=== PATIENT | male | born 1980 | race Caucasian/White ===

== ENCOUNTER 2021-03-23 10:25 | Inpatient (IN) | payer OTHER, SELFPAY ==
[2021-03-23] VITALS (60 sets, daily range): BP systolic 119–159; BP diastolic 83–96; PULSE 92–115; RESP 16–42; TEMP 35.7–36.6; O2SAT 79–96; BMI 31.1
--- NOTE | ~2021-03-23 | XR_ITS ---
EXAMINATION: XR chest 1V portable DATE: 03/23/2021 11:07 INDICATION: COVID positive. Shortness of breath. TECHNIQUE: frontal view of the chest was obtained. COMPARISON: None FINDINGS: Patchy airspace opacities throughout the bilateral mid and lower lung zones. The cardiomediastinal si lhouette is within normal limits for AP technique. Minimal S-shaped curvature of the thoracic spine. IMPRESSION: 1. Patchy opacities in the bilateral mid and lower lung zones with appearance consistent with COVID p neumonia. Reviewed, dictated and finalized at location A. K PREPARER IMPRESSION: 1. Patchy opacities in the bilateral mid and lower lung zones with appearance c onsistent with COVID pneumonia.
--- NOTE | ~2021-03-23 | CT_ITS ---
EXAMINATION: CTA chest PE protocol EXAM DATE: 03/24/2021 00:11 INDICATION: hypoxia, COVID, elevated d dimer. TECHNIQUE: Spiral CTA of the chest (pulmonary arteries) was performed with 100 cc Omnipaque 350 intr avenous contrast injection. Images were acquired during the pulmonary arterial phase. Coronal maxi mum intensity projection 3D-reconstructions were created by the technologist on dedicated workstation . Axial, coronal and sagittal reformatted images were reviewed. The dose-length product (DLP) for t his examination was 585.42 mGy-cm. The exposure was tailored according to patient size (auto mA exp osure control), and iterative reconstruction (ASIR) was used as additional dose reduction technique. There is no prior study for comparison. FINDINGS: There are no pulmonary emboli in the 1st through 3rd order (central and interlobar) pulmon julee arteries. Some loss of attenuation in the basilar segmental pulmonary from respiratory motion, t hese regions not confidently evaluated. No Intraluminal filling defects identified. Azygos fissure. No thoracic aortic dissection. There is moderate amount of bilateral airspace disease, regions of linear atelectasis and surrounding groundglass opacity, appearance is consistent with subacute stage COVID pneumonia. There are no pleu ral or pericardial effusions. Tracheobronchial tree is patent. There is no mediastinal, hilar or axillary lymphadenopathy. There is no pneumothorax. Mild cardiomegaly. No evidence of coronary a rterial calcification. There is hepatic steatosis. There is small sliding gastroesophageal hiatal he rnia. There is thoracic spondylosis without osteoblastic or osteolytic lesions identified. IMPRESSION: 1. No central pulmonary emboli. Basilar segmental pulmonary arteries not confidently evaluated. 2. Moderate amount of airspace disease consistent with subacute stage COVID pneumonia. 3. Mild cardiomegaly. Reviewed, dictated and finalized at location A. MOBILE LIGHTS ASSEMBLER IMPRESSION: 1. No central pulmonary emboli. Basilar segmental pulmonary arteries not confi dently evaluated. 2. Moderate amount of airspace disease consistent with subacute stage COVID pn eumonia. 3. Mild cardiomegaly.
--- NOTE | 2021-03-23 10:51 | ECG_ITS ---
Measurements Intervals [place] Rate: 99 P: 29 IN: 132 QRS: -24 QRSD: 102 T: 12 QT: 348 QTc: 448 Interpretive Statements SINUS RHYTHM CONSIDER INFERIOR INFARCT, AGE INDETERMINATE BASELINE ARTIFACT- I, II, III, AVR, AVL, AVF, V2-V6 ABNORMAL ECG Electronically Signed On 03-23-2021 11:03:53 ADJUNCT PROFESSOR OF LAW by Roger Jones D.O.
[2021-03-23 11:07] LABS: Basophils Percent Auto 0.2 % (0.2-1.2); Hematocrit 41.9 % (42.0-52.0); Hemoglobin 14.5 g/dL (14.0-18.0); Immature Granulocyte Absolute 0.03 K/mm3 (0.00-0.031); Immature Granulocyte Percent A 0.5 % (0-0.5); Lymphocytes Absolute Auto 1.03 K/mm3 (0.9-3.2); Lymphocytes Percent Auto 17.3 % (18.3-44.2); Mean Corpuscular HGB Conc 34.6 g/dl (32-36); Mean Corpuscular Hemoglobin 29.3 pg (26-34); Mean Corpuscular Volume 84.6 fl (80-100); Monocytes Absolute Auto 0.3 K/mm3 (0.1-0.6); Monocytes Percent Auto 5.7 % (2.6-8.5); Neutrophils Absolute Auto 4.6 K/mm3 (1.3-6.7); Neutrophils Percent Auto 76.3 % (45.5-73.1); Platelet Count Result 223 k/mm3 (150-375); Red Blood Count 4.95 M/mm3 (4.6-6.20); Red Cell Distribution Width 12.9 % (11.5-14.5)
[2021-03-23 11:21] LABS: Alanine Aminotransferase 70 U/L (4-50); Albumin Level 4.3 g/dL (3.5-5.1); Alkaline Phosphatase 57 U/L (38-126); Anion Gap 14 mmol/L (8-16); Aspartate Amino Transferase 57 U/L (17-59); Bilirubin,Total 0.7 mg/dL (0.2-1.3); Blood Urea Nitrogen 18 mg/dL (9-20); Calcium 8.8 mg/dL (8.4-10.2); Carbon Dioxide 25 mmol/L (22-30); Chloride 97 mmol/L (98-107); Estimated CRCL calculation 95 ml/min; Estimated Glomerular Filt Rate > 60; Glucose 129 mg/dL (65-110); Potassium 3.6 mmol/L (3.4-5.0); Sodium 136 mmol/L (137-145)
--- NOTE | 2021-03-23 12:53 | PC.NURSE ---
pt o2 sat dropped to 86% on ra while ambulating, placed on 2l oxygen NC per vorb from dr arenas
--- NOTE | 2021-03-23 13:38 | ED.GENADULT ---
HPI - General Adult General Chief complaint: Upper Respiratory Infection Stated complaint: Covid + sob Time Seen by Provider: 03/23/21 11:18 Source: patient Mode of arrival: ambulatory Limitations: no limitations History of Present Illness HPI narrative: 40-year-old with no major medical problems here with complaints of shortness of breath and occasional cough and low-grade fever for past few days. He states he was diagnosed with Covid approximately 3 to 4 days ago. He denies any chest pain. No history of nausea or vomiting or abdominal pain. Patient is not vaccinated against Covid Onset (ago): day(s) (3) Associated symptoms: malaise and shortness of breath Related Data Home Medications Medication Instructions Recorded Confirmed No Home Medications 03/23/21 03/23/21 Allergies Allergy/AdvReac Type Severity Reaction Status Date / Time No Known Allergies Allergy Verified 03/23/21 11:00 Review of Systems Review of Systems: All systems reviewed & are unremarkable except as noted in HPI and below Constitutional: Constitutional: Reports no additional constitutional complaints Eyes: Eyes: Reports no additional eye complaints ENT: Reports system reviewed and no additional complaints, except as documented Cardiovascular: Cardiovascular: Reports no additional cardiovascular complaints Respiratory: Respiratory: Reports as per HPI Gastrointestinal: Gastrointestinal: Reports no additional gastrointestinal complaints Musculoskeletal: Musculoskeletal: Reports no additional musculoskeletal complaints Integumentary/Breasts: Skin/Breast: Reports system reviewed and no additional complaints, except as docu Neurologic: Reports system reviewed and no additional complaints, except as documented PMFSH Social History Social History (Updated 03/23/21 @ 14:53 by Analy Plasencia PA-C) Social History: The patient lives in [place]. He designates his Tete Wolfe as his surrogate decision maker. Code status: Full code. Exam Narrative: GENERAL: Well-appearing, well-nourished, and in no acute distress. HEAD: Normocephalic, atraumatic. EYES: PERRLA and EOMI. NECK: Supple. CHEST: Clear to auscultation. No respiratory distress. HEART: Regular rate and rhythm. No murmur heard. Normal peripheral pulses. ABDOMEN: Soft, nontender, nondistended, normal active bowel sounds. EXTREMITIES: Normal range of motion. No edema. SKIN: Warm, dry, no rash. NEURO: No focal deficits. Alert and oriented x3. PSYCH: Normal mood and affect. Course Course Emergency Course: Patient resting SPO2 is anywhere between 90 - 92% on room air. When I made him ambulate for a very short distance his SPO2 dropped down to 80 and his heart rate went up to 212. Once he is resting with 2 L oxygen saturations came up to 94%. Informed him about his lab work, chest x-ray findings. Discussed with hospitalist agreed to admit the patient. Vital Signs Vital signs: Vital Signs Temperature 35.7 C L 03/23/21 10:28 Pulse Rate 107 H 03/23/21 10:28 Respiratory Rate 24 H 03/23/21 10:28 Blood Pressure 137/84 03/23/21 10:28 Pulse Oximetry 92 03/23/21 10:28 Temperature 35.7 C L 03/23/21 10:28 Pulse Rate 104 H 03/23/21 14:01 Respiratory Rate 32 H 03/23/21 14:01 Blood Pressure 135/87 03/23/21 14:01 Pulse Oximetry 94 03/23/21 14:01 Medical Decision Making Vital Signs Vital Signs: Vital Signs Temperature 35.7 C L 03/23/21 10:28 Pulse Rate 107 H 03/23/21 10:28 Respiratory Rate 24 H 03/23/21 10:28 Blood Pressure 137/84 03/23/21 10:28 Pulse Oximetry 92 03/23/21 10:28 Temperature 35.7 C L 03/23/21 10:28 Pulse Rate 104 H 03/23/21 14:01 Respiratory Rate 32 H 03/23/21 14:01 Blood Pressure 135/87 03/23/21 14:01 Pulse Oximetry 94 03/23/21 14:01 Lab Data Result diagrams: 03/23/21 10:59 03/23/21 10:59 Labs: Lab Results 03/23/21 03/23/21 03/23/21 Range/Units
[2021-03-23 14:09] LABS: EDCOVIDSCREEN Positive (Negative)
[2021-03-23 15:29] LABS: Prothrombin Time 13.1 Seconds (11.1-14.7)
[2021-03-23 15:31] LABS: D Dimer 0.54 ug/mL (<0.48)
[2021-03-23 15:33] LABS: CRP 6.2 mg/dL (<1.0); Lactate Dehydrogenase 899 U/L (313-618); Magnesium 2.6 mg/dL (1.6-2.3)
[2021-03-23] MEDS: REMDESIVIR 200 MG/NS 250 ML 200 MG/250 ML BAG 250 MG IVPB (16:03)
[2021-03-23 16:36] LABS: Thyroid Stimulating Hormone Reflex 0.834 uIU/mL (0.465-4.68)
--- NOTE | 2021-03-23 17:30 | PM.IMHP ---
H&P: HPI History of Present Illness Date/Time: 03/23/21 17:30 Chief Complaint: Shortness of breath. Narrative: This is a 40-year-old male with no significant medical history who presented to the emergency department earlier today from home for evaluation of shortness of breath. He has not been feeling well for about 1 week with symptoms to include generalized malaise, low-grade fever, cough, sinus congestion, decreased appetite, and decreased smell and taste. Over the last day or so he is gotten progressively more weak and short of breath and thus he came in today for evaluation. He was afebrile on arrival to the emergency department with an SpO2 of 92% on room air though since that time he has been started on 2 L nasal cannula as his SpO2 dropped to 79% when ambulating. Chest x-ray shows patchy opacities in the bilateral mid and lower lung zones with an appearance consistent with COVID pneumonia and he is being admitted in this setting. The patient reportedly tested positive for COVID 19 on a home kit on 03/20/2021 and he was also positive on a rapid screening test today in the ER. He has not vaccinated against COVID. Review of Systems Review of Systems: Twelve systems were reviewed and are negative except for as per HPI. [facility] Past Medical History Medical History (Updated 03/23/21 @ 23:32 by Analy Plasencia PA-C) No significant past medical history Surgical History Surgical History (Updated 03/23/21 @ 23:32 by Analy Plasencia PA-C) No history of previous surgery Family History Family History (Updated 03/23/21 @ 23:32 by Analy Plasencia PA-C) Other No pertinent family history Social History Social History (Updated 03/23/21 @ 23:33 by Analy Plasencia PA-C) Social History: The patient lives with his and children in [place]. Lifelong nonsmoker. No alcohol or illicit substance abuse. He designates his Tete Wolfe as his surrogate decision maker. Code status: Full code. Meds Home Medications and Allergies Home Medications Medication Instructions Recorded Confirmed Type No Home Medications 03/23/21 03/23/21 History Allergies Allergy/AdvReac Type Severity Reaction Status Date / Time No Known Allergies Allergy Verified 03/23/21 11:00 Vital Signs Vital Signs - 24 hr 03/23/21 10:28 03/23/21 10:51 03/23/21 10:52 Temperature 96.2 F L Pulse Rate 107 H 99 103 H Respiratory Rate 24 H 36 H 25 H Blood Pressure 137/84 132/88 Pulse Oximetry 92 91 92 03/23/21 11:00 03/23/21 11:02 03/23/21 11:03 Temperature Pulse Rate 99 107 H 100 Respiratory Rate 33 H 42 H 25 H Blood Pressure 132/88 137/86 Pulse Oximetry 92 93 91 03/23/21 11:19 03/23/21 11:49 03/23/21 12:00 Temperature Pulse Rate 100 94 93 Respiratory Rate 28 H 29 H 32 H Blood Pressure Pulse Oximetry 92 92 91 03/23/21 12:01 03/23/21 12:02 03/23/21 12:15 Temperature Pulse Rate 92 93 99 Respiratory Rate 31 H 31 H 34 H Blood Pressure 119/88 Pulse Oximetry 92 91 91 03/23/21 12:16 03/23/21 12:30 03/23/21 12:31 Temperature Pulse Rate 102 H 97 103 H Respiratory Rate 28 H 33 H 24 H Blood Pressure 128/83 126/92 H Pulse Oximetry 91 86 L 90 03/23/21 12:45 03/23/21 12:49 03/23/21 12:50 Temperature Pulse Rate 104 H 115 H 106 H Respiratory Rate 26 H 38 H 31 H Blood Pressure 159/96 H Pulse Oximetry 79 L 86 L 03/23/21 13:00 03/23/21 13:01 03/23/21 13:04 Temperature Pulse Rate 101 H 102 H Respiratory Rate 29 H 35 H Blood Pressure 127/88 Pulse Oximetry 93 93 93 03/23/21 13:15 03/23/21 13:31 03/23/21 13:32 Temperature Pulse Rate 104 H 103 H 101 H Respiratory Rate 33 H 33 H 34 H Blood Pressure 134/90 Pulse Oximetry 93 95 94 03/23/21 13:48 03/23/21 14:01 Temperature Pulse Rate 106 H 104 H Respiratory Rate 38 H 32 H Blood Pressure 135/87 Pulse Oximetry 96 94 Exam Narrative: General: Mildly ill-appearing male sitting up in bed. [place]
--- NOTE | 2021-03-23 21:24 | PC.NURSE ---
This patient, Kaleb Wolfe, was admitted to [facility] Surg Room 321-01. Patient/family oriented to hospital policies and general routines including ID bracelet, bed and alarms, visiting hours, pain management, procedures, bathroom and other care routines, personal items, smoking policy, room service/diet, and visiting hours. Information on how to activate the Rapid Response Team has been discussed. Patient/Family are encouraged to report perceived risks to care and to ask questions if they do not understand what they are told or what they should do.
[2021-03-24] VITALS (13 sets, daily range): BP systolic 125–167; BP diastolic 75–84; PULSE 91–110; RESP 12–24; TEMP 36.5–36.7; O2SAT 88–96
[2021-03-24 08:03] LABS: INR 1.1
[2021-03-24 08:06] LABS: Basophils Percent Auto 0.3 % (0.2-1.2); Hematocrit 40.7 % (42.0-52.0); Hemoglobin 13.5 g/dL (14.0-18.0); Immature Granulocyte Absolute 0.04 K/mm3 (0.00-0.031); Immature Granulocyte Percent A 0.5 % (0-0.5); Immature Platelet Fraction Pct 15.6 % (0.9-11.2); Lymphocytes Absolute Auto 0.95 K/mm3 (0.9-3.2); Lymphocytes Percent Auto 12.4 % (18.3-44.2); Mean Corpuscular HGB Conc 33.2 g/dl (32-36); Mean Corpuscular Hemoglobin 28.5 pg (26-34); Mean Platelet Volume 10.3 fl (7.4-10.4); Monocytes Absolute Auto 0.5 K/mm3 (0.1-0.6); Monocytes Percent Auto 6.6 % (2.6-8.5); Neutrophils Absolute Auto 6.2 K/mm3 (1.3-6.7); Neutrophils Percent Auto 80.2 % (45.5-73.1); Red Blood Count 4.73 M/mm3 (4.6-6.20); Red Cell Distribution Width 12.9 % (11.5-14.5); White Blood Count 7.7 K/mm3 (4.5-10.0)
[2021-03-24 08:07] LABS: Alanine Aminotransferase 98 U/L (4-50); Albumin Level 4.1 g/dL (3.5-5.1); Alkaline Phosphatase 54 U/L (38-126); Anion Gap 12 mmol/L (8-16); Aspartate Amino Transferase 74 U/L (17-59); Bilirubin,Total 0.6 mg/dL (0.2-1.3); Blood Urea Nitrogen 17 mg/dL (9-20); Calcium 8.6 mg/dL (8.4-10.2); Carbon Dioxide 26 mmol/L (22-30); Chloride 98 mmol/L (98-107); Estimated CRCL calculation 117 ml/min; Estimated Glomerular Filt Rate > 60; Glucose 136 mg/dL (65-110); Magnesium 2.5 mg/dL (1.6-2.3); Potassium 3.7 mmol/L (3.4-5.0); Sodium 136 mmol/L (137-145)
[2021-03-24] MEDS: WATER FOR IRRIGATION, STERILE 1,000 ML BOTTLE 1000 ML (09:45)
[2021-03-24] MEDS: REMDESIVIR 100 MG/NS 250 ML 100 MG/250 ML BAG 250 MG IVPB (09:45)
[2021-03-24] MEDS: ENOXAPARIN 40 MG/0.4 ML SYRINGE SUB-Q (09:46)
[2021-03-24] MEDS: ALBUTEROL SULFATE (*SP) INHALER 2 PUFF INHALATION ×2 (12:29→21:40)
--- NOTE | 2021-03-24 13:49 | PM.IMPN ---
Progress Note: A&P Assessment and Plan (1) Pneumonia due to 2019 novel coronavirus: Code(s): U07.1 - COVID-19; J12.82 - Pneumonia due to coronavirus disease 2019 Status: Acute Assessment and Plan: -unvaccinated -diagnosed 03/23/2021 -started on remdesivir, dexamethasone -wean oxygen as tolerated, keep oxygen saturation greater than 90%. On 5 L oxygen this morning -continue COVID-19 isolation precautions -trending LFTs while on remdesivir (2) Acute respiratory failure with hypoxia: Code(s): J96.01 - Acute respiratory failure with hypoxia Status: Acute Assessment and Plan: As above Additional Plan Diet: Regular DVT prophylaxis: Lovenox Code status: Full code Disposition: anticipate greater in 3 days for oxygen weaning Time Spent With Patient Time with patient: 15 - 25 minutes Subjective Date/time seen: 03/24/21 13:49 Patient seen and examined. He is doing well this morning, on 5 L oxygen nasal cannula no complaints. He is on remdesivir and Decadron COVID-19 treatment plan. He has no home medications. He is unvaccinated. He denies fever, chills, nausea vomiting, diarrhea, chest pain, shortness of breath. Review of Systems Review of Systems: All systems reviewed & are unremarkable except as noted in HPI and below Exam Narrative: - GENERAL: Pleasant male in no acute distress. Well-nourished. - EYES: EOMI. Anicteric. - HENT: Moist mucous membranes. No scleral icterus. - LUNGS: Slightly coarse lung sounds bilaterally. Nonlabored respirations on 5 L oxygen. - CARDIOVASCULAR: Regular rate and rhythm. No murmur. No JVD. - ABDOMEN: Soft, non-tender and non-distended. No palpable masses. - EXTREMITIES: No edema. Peripheral pulses 2+. Non-tender. - NEUROLOGIC: No focal neurological deficits. CN II-XII grossly intact. - PSYCHIATRIC: Awake, Alert and oriented x 3. Appropriate mood and affect. - SKIN: No rashes or lesions. Warm. - LYMPH: No cervical lymphadenopathy. Objective Data Vital Signs Vital Signs: Vital Signs - 24 hr 03/23/21 14:01 03/23/21 14:42 03/23/21 14:46 Temperature Pulse Rate 104 H 103 H 104 H Respiratory Rate 32 H 28 H 29 H Blood Pressure 135/87 133/90 Pulse Oximetry 94 94 94 03/23/21 14:50 03/23/21 15:00 03/23/21 15:01 Temperature Pulse Rate 102 H 101 H 102 H Respiratory Rate 34 H 34 H 39 H Blood Pressure 131/92 H Pulse Oximetry 93 93 94 03/23/21 15:29 03/23/21 15:30 03/23/21 15:31 Temperature Pulse Rate 99 97 100 Respiratory Rate 38 H 38 H 39 H Blood Pressure 132/91 H Pulse Oximetry 93 94 93 03/23/21 15:53 03/23/21 16:00 03/23/21 16:01 Temperature Pulse Rate 102 H 103 H 102 H Respiratory Rate 37 H 29 H 38 H Blood Pressure 128/86 Pulse Oximetry 93 93 93 03/23/21 16:26 03/23/21 16:30 03/23/21 16:39 Temperature Pulse Rate 103 H 102 H 101 H Respiratory Rate 36 H 32 H 31 H Blood Pressure 132/87 Pulse Oximetry 94 94 93 03/23/21 16:45 03/23/21 16:46 03/23/21 17:00 Temperature Pulse Rate 100 101 H 101 H Respiratory Rate 33 H 34 H 33 H Blood Pressure 131/87 126/87 Pulse Oximetry 94 94 94 03/23/21 17:01 03/23/21 17:15 03/23/21 17:16 Temperature Pulse Rate 99 100 101 H Respiratory Rate 34 H 33 H 36 H Blood Pressure 125/89 Pulse Oximetry 94 93 93 03/23/21 17:30 03/23/21 17:32 03/23/21 17:59 Temperature Pulse Rate 107 H 108 H 106 H Respiratory Rate 31 H 32 H 34 H Blood Pressure 132/90 Pulse Oximetry 93 92 93 03/23/21 18:02 03/23/21 18:15 03/23/21 18:16 Temperature Pulse Rate 107 H 107 H 106 H Respiratory Rate 38 H 38 H 38 H Blood Pressure 131/84 131/86 Pulse Oximetry 93 92 93 03/23/21 18:30 03/23/21 18:31 03/23/21 18:45 Temperature Pulse Rate 108 H 105 H 105 H Respiratory Rate 25 H 32 H 27 H Blood Pressure 131/84 123/90 Pulse Oximetry 93 93 93 03/23/21 18:46 03/23/21 19:02 03/23/21 19:17 Temperature Pulse Rate 103 H 106 H 102 H Respiratory Rate
[2021-03-24] MEDS: guaiFENesin 12 HR 600 MG TABCR 1200 MG PO (16:53)
[2021-03-24] MEDS: BARICITINIB 2 MG TABLET 4 MG PO (16:53)
[2021-03-25] VITALS (7 sets, daily range): BP systolic 108–149; BP diastolic 59–85; PULSE 87–94; RESP 14–20; TEMP 36.1–37.1; O2SAT 90–94
[2021-03-25] MEDS: ALBUTEROL SULFATE (*SP) INHALER 2 PUFF INHALATION ×3 (01:44→20:02)
[2021-03-25 06:54] LABS: Basophils Percent Auto 0.3 % (0.2-1.2); Hematocrit 39.5 % (42.0-52.0); Hemoglobin 13.2 g/dL (14.0-18.0); Immature Granulocyte Percent A 1.5 % (0-0.5); Immature Platelet Fraction Pct 16.8 % (0.9-11.2); Lymphocytes Absolute Auto 1.13 K/mm3 (0.9-3.2); Lymphocytes Percent Auto 16.9 % (18.3-44.2); Mean Corpuscular HGB Conc 33.4 g/dl (32-36); Mean Corpuscular Hemoglobin 28.9 pg (26-34); Mean Corpuscular Volume 86.4 fl (80-100); Mean Platelet Volume 11.9 fl (7.4-10.4); Monocytes Absolute Auto 0.6 K/mm3 (0.1-0.6); Monocytes Percent Auto 8.8 % (2.6-8.5); Neutrophils Absolute Auto 4.9 K/mm3 (1.3-6.7); Neutrophils Percent Auto 72.5 % (45.5-73.1); Red Blood Count 4.57 M/mm3 (4.6-6.20); Red Cell Distribution Width 12.8 % (11.5-14.5); White Blood Count 6.7 K/mm3 (4.5-10.0)
[2021-03-25 07:06] LABS: Alanine Aminotransferase 91 U/L (4-50); Albumin Level 3.9 g/dL (3.5-5.1); Alkaline Phosphatase 48 U/L (38-126); Anion Gap 7 mmol/L (8-16); Aspartate Amino Transferase 47 U/L (17-59); Bilirubin,Total 0.5 mg/dL (0.2-1.3); Blood Urea Nitrogen 20 mg/dL (9-20); Calcium 8.5 mg/dL (8.4-10.2); Carbon Dioxide 31 mmol/L (22-30); Chloride 99 mmol/L (98-107); Estimated CRCL calculation 102 ml/min; Estimated Glomerular Filt Rate > 60; Glucose 142 mg/dL (65-110); Potassium 3.7 mmol/L (3.4-5.0); Sodium 137 mmol/L (137-145)
[2021-03-25 07:07] LABS: Prothrombin Time 13.2 Seconds (11.1-14.7)
[2021-03-25] MEDS: ENOXAPARIN 40 MG/0.4 ML SYRINGE SUB-Q (09:09)
[2021-03-25] MEDS: guaiFENesin 12 HR 600 MG TABCR 1200 MG PO ×2 (09:10→21:04)
[2021-03-25] MEDS: BARICITINIB 2 MG TABLET 4 MG PO (09:10)
[2021-03-25 09:31] LABS: Atypical Lymphocytes Present; Platelet Clumps Present
[2021-03-25] MEDS: REMDESIVIR 100 MG/NS 250 ML 100 MG/250 ML BAG 250 MG IVPB (10:46)
--- NOTE | 2021-03-25 14:01 | PM.IMPN ---
Progress Note: A&P Assessment and Plan (1) Acute respiratory failure with hypoxia: Code(s): J96.01 - Acute respiratory failure with hypoxia Status: Acute (2) Pneumonia due to 2019 novel coronavirus: Code(s): U07.1 - COVID-19; J12.82 - Pneumonia due to coronavirus disease 2019 Status: Acute Additional Plan # COVID-19 pneumonia # acute hypoxic respiratory failure -unvaccinated, diagnosed 03/23/2021 -continue remdesivir 03/23- 5 days, dexamethasone 03/23- 10 days, baricitinib 03/24-for 14 days -continue supplemental oxygen to keep oxygen saturation greater than 90%, currently on 14 L high-flow oxygen -isolation precautions for COVID-19 -trending LFTs while on remdesivir, CBC and CMP while on baricitinib -dose of Lasix 20 mg IV has lungs are coarse and congested Diet: Regular DVT prophylaxis: Lovenox Code status: Full code Disposition: Anticipate grade 3 days oxygen weaning Time Spent With Patient Time with patient: 25 - 35 minutes Subjective Date/time seen: 03/25/21 14:01 Patient seen examined. He has no new complaints today. His oxygen car worse with increased to 14 L. yesterday was started on baricitinib. Currently on remdesivir, Decadron, baricitinib. We have given him Mucinex to help him cough, he says his mucus is getting loosen these are cough. We discussed giving him a dose of Lasix, giving 20 mg IV Lasix. He states he is moving his bowels without problems. Patient denies fever, chills, nausea, vomiting diarrhea. He endorses cough and pleurisy. Review of Systems Review of Systems: All systems reviewed & are unremarkable except as noted in HPI and below Exam Narrative: - GENERAL: Pleasant male in no acute distress. Well-nourished. - EYES: EOMI. Anicteric. - HENT: Moist mucous membranes. - LUNGS: Slightly coarse lung sounds bilaterally. Coarse cough. Nonlabored respirations on 14 L oxygen. - CARDIOVASCULAR: Regular rate and rhythm. No murmur. No JVD. - ABDOMEN: Soft, non-tender and non-distended. No palpable masses. - EXTREMITIES: No edema. Peripheral pulses 2+. Non-tender. - NEUROLOGIC: No focal neurological deficits. CN II-XII grossly intact. - PSYCHIATRIC: Awake, Alert and oriented x 3. Appropriate mood and affect. - SKIN: No rashes or lesions. Warm. - LYMPH: No cervical lymphadenopathy. Objective Data Vital Signs Vital Signs: Vital Signs - 24 hr 03/24/21 15:30 03/24/21 15:49 03/24/21 16:00 Temperature 36.5 C Pulse Rate 104 H Respiratory Rate 24 H Blood Pressure 132/80 Pulse Oximetry 88 L 92 88 L 03/24/21 17:15 03/24/21 19:16 03/24/21 19:20 Temperature Pulse Rate 91 Respiratory Rate 20 Blood Pressure Pulse Oximetry 93 90 93 03/24/21 20:00 03/24/21 21:40 03/25/21 00:00 Temperature 36.6 C 37.1 C Pulse Rate 93 90 Respiratory Rate 12 14 Blood Pressure 126/77 108/59 L Pulse Oximetry 94 96 94 03/25/21 04:00 03/25/21 08:00 03/25/21 12:00 Temperature 36.1 C L 36.9 C 36.2 C L Pulse Rate 87 93 94 Respiratory Rate 14 20 20 Blood Pressure 124/67 149/79 H 142/74 H Pulse Oximetry 90 91 92 Intake/Output Intake/Output: Intake & Output 03/22/21 03/23/21 03/24/21 03/25/21 23:59 23:59 23:59 23:59 Intake Total 250 2400 850 Output Total 900 Balance 250 1500 850 Meds/Results Medications: Active Medications Generic Name Dose Route Start Last Admin Trade Name Freq PRN Reason Stop Dose Admin Acetaminophen 650 mg 03/23/21 13:45 Acetaminophen 325 Mg Tablet PO Q4H PRN Mild Pain (1-3) or Fever Albuterol 2 puff 03/24/21 20:00 03/25/21 11:04 Albuterol Sulfate (*Sp) Inhaler INHALATION Not Given Q6HRT [facility] Baricitinib 4 mg 03/24/21 15:50 03/25/21 09:10 Baricitinib 2 Mg Tablet PO 4 mg DAILY SELMA Administration Dexamethasone Sodium Phosphate 6 mg 03/24/21 09:00 03/25/21 09:10 Dexamethasone Sod Phos Inj 10 Mg/Ml 1 Ml Vial IV PUSH 04/01/21 09:01 6 mg DAILY SELMA Administration Enoxaparin So
[2021-03-25] MEDS: FUROSEMIDE INJ 40 MG/4 ML VIAL 20 MG IV PUSH (14:32)
[2021-03-26] VITALS (10 sets, daily range): BP systolic 108–125; BP diastolic 62–86; PULSE 71–98; RESP 16–22; TEMP 36.2–36.9; O2SAT 90–100
[2021-03-26 07:33] LABS: Basophils Percent Auto 0.3 % (0.2-1.2); Eosinophils Percent Auto 0.1 % (0-4.4); Hematocrit 42.7 % (42.0-52.0); Hemoglobin 13.8 g/dL (14.0-18.0); Immature Granulocyte Absolute 0.18 K/mm3 (0.00-0.031); Immature Granulocyte Percent A 1.9 % (0-0.5); Immature Platelet Fraction Pct 17.3 % (0.9-11.2); Lymphocytes Absolute Auto 1.52 K/mm3 (0.9-3.2); Lymphocytes Percent Auto 16.1 % (18.3-44.2); Mean Corpuscular HGB Conc 32.3 g/dl (32-36); Mean Corpuscular Hemoglobin 28.9 pg (26-34); Mean Corpuscular Volume 89.3 fl (80-100); Mean Platelet Volume 11.1 fl (7.4-10.4); Monocytes Absolute Auto 0.7 K/mm3 (0.1-0.6); Monocytes Percent Auto 7.5 % (2.6-8.5); Neutrophils Percent Auto 74.1 % (45.5-73.1); Red Blood Count 4.78 M/mm3 (4.6-6.20); Red Cell Distribution Width 12.9 % (11.5-14.5); White Blood Count 9.5 K/mm3 (4.5-10.0)
[2021-03-26 07:43] LABS: INR 1.1; Prothrombin Time 14.4 Seconds (11.1-14.7)
[2021-03-26 07:46] LABS: D Dimer 0.33 ug/mL (<0.48)
[2021-03-26 08:12] LABS: Alanine Aminotransferase 135 U/L (4-50); Albumin Level 3.7 g/dL (3.5-5.1); Alkaline Phosphatase 45 U/L (38-126); Anion Gap 11 mmol/L (8-16); Aspartate Amino Transferase 62 U/L (17-59); Bilirubin,Total 0.5 mg/dL (0.2-1.3); Blood Urea Nitrogen 24 mg/dL (9-20); CRP 1.6 mg/dL (<1.0); Calcium 8.5 mg/dL (8.4-10.2); Carbon Dioxide 28 mmol/L (22-30); Chloride 100 mmol/L (98-107); Estimated CRCL calculation 102 ml/min; Estimated Glomerular Filt Rate > 60; Glucose 121 mg/dL (65-110); Potassium 3.8 mmol/L (3.4-5.0); Sodium 139 mmol/L (137-145)
[2021-03-26] MEDS: guaiFENesin 12 HR 600 MG TABCR 1200 MG PO ×2 (09:34→21:38)
[2021-03-26] MEDS: ENOXAPARIN 40 MG/0.4 ML SYRINGE SUB-Q (09:34)
[2021-03-26] MEDS: BARICITINIB 2 MG TABLET 4 MG PO (09:35)
[2021-03-26] MEDS: REMDESIVIR 100 MG/NS 250 ML 100 MG/250 ML BAG 250 MG IVPB (10:25)
--- NOTE | 2021-03-26 11:42 | PCRCNOTE ---
Window of time for administration has passed. See next scheduled administration.
[2021-03-26] MEDS: ALBUTEROL SULFATE (*SP) INHALER 2 PUFF INHALATION ×2 (12:03→21:20)
--- NOTE | 2021-03-26 14:14 | PM.IMPN ---
Progress Note: A&P Assessment and Plan (1) Acute respiratory failure with hypoxia: Code(s): J96.01 - Acute respiratory failure with hypoxia Status: Acute (2) Pneumonia due to 2019 novel coronavirus: Code(s): U07.1 - COVID-19; J12.82 - Pneumonia due to coronavirus disease 2019 Status: Acute (3) Hypoxemia: Code(s): R09.02 - Hypoxemia Status: Acute Additional Plan # COVID-19 pneumonia # acute hypoxic respiratory failure -unvaccinated, diagnosed 03/23/2021 -continue remdesivir 03/23- 5 days, dexamethasone 03/23- 10 days, baricitinib 03/24-for 14 days -continue supplemental oxygen to keep oxygen saturation greater than 90%, currently on 12 L high-flow oxygen -isolation precautions for COVID-19 -trending LFTs while on remdesivir, CBC and CMP while on baricitinib -continue lasix 20mg IV daily -discussed with nurse to wean oxygen Diet: Regular DVT prophylaxis: Lovenox Code status: Full code Disposition: Anticipate greater than 3 days oxygen weaning Subjective Date/time seen: 03/26/21 14:14 Patient seen examined. He has been weaned down to 12 L oxygen. No new change no new complaints. Continue COVID-19 treatment plan. Endorses cough and shortness of breath. denies fever, chills, nausea, vomiting, diarrhea. We will continue Lasix 20 mg she IV daily. Review of Systems Review of Systems: All systems reviewed & are unremarkable except as noted in HPI and below Exam Narrative: - GENERAL: Pleasant male in no acute distress. Well-nourished. - EYES: EOMI. Anicteric. - HENT: Moist mucous membranes. - LUNGS: Coarse lung sounds bilaterally. Coarse cough. Nonlabored respirations on 12 L oxygen. - CARDIOVASCULAR: Regular rate and rhythm. No murmur. No JVD. - ABDOMEN: Soft, non-tender and non-distended. No palpable masses. - EXTREMITIES: No edema. Peripheral pulses 2+. Non-tender. - NEUROLOGIC: No focal neurological deficits. CN II-XII grossly intact. - PSYCHIATRIC: Awake, Alert and oriented x 3. Appropriate mood and affect. - SKIN: No rashes or lesions. Warm. - LYMPH: No cervical lymphadenopathy. Objective Data Vital Signs Vital Signs: Vital Signs - 24 hr 03/25/21 14:45 03/25/21 16:00 03/25/21 20:00 Temperature 37.0 C 36.6 C Pulse Rate 91 87 Respiratory Rate 20 20 Blood Pressure 148/85 H 120/69 Pulse Oximetry 90 91 94 03/26/21 00:00 03/26/21 04:00 03/26/21 08:00 Temperature 36.5 C 36.2 C L 36.6 C Pulse Rate 71 71 80 Respiratory Rate 16 20 16 Blood Pressure 108/62 109/70 119/77 Pulse Oximetry 100 95 92 03/26/21 09:30 03/26/21 12:00 03/26/21 12:04 Temperature 36.6 C Pulse Rate 80 Respiratory Rate 16 Blood Pressure 111/68 Pulse Oximetry 93 96 91 Intake/Output Intake/Output: Intake & Output 03/23/21 03/24/21 03/25/21 03/26/21 23:59 23:59 23:59 23:59 Intake Total 250 2400 1340 990 Output Total 900 1 Balance 250 1500 1340 989 Meds/Results Medications: Active Medications Generic Name Dose Route Start Last Admin Trade Name Freq PRN Reason Stop Dose Admin Acetaminophen 650 mg 03/23/21 13:45 Acetaminophen 325 Mg Tablet PO Q4H PRN Mild Pain (1-3) or Fever Albuterol 2 puff 03/24/21 20:00 03/26/21 12:03 Albuterol Sulfate (*Sp) Inhaler INHALATION 2 puff Q6HRT SELMA Administration Baricitinib 4 mg 03/24/21 15:50 03/26/21 09:35 Baricitinib 2 Mg Tablet PO 4 mg DAILY SELMA Administration Dexamethasone Sodium Phosphate 6 mg 03/24/21 09:00 03/26/21 09:35 Dexamethasone Sod Phos Inj 10 Mg/Ml 1 Ml Vial IV PUSH 04/01/21 09:01 6 mg DAILY SELMA Administration Enoxaparin Sodium 40 mg 03/24/21 09:00 03/26/21 09:34 Enoxaparin 40 Mg/0.4 Ml Syringe SUB-Q 40 mg DAILY SELMA Administration Guaifenesin 1,200 mg 03/24/21 21:00 03/26/21 09:34 Guaifenesin 12 Hr 600 Mg Tabcr PO 1,200 mg Q12HR SELMA Administration Remdesivir 100 mg in 250 mls @ 250 mls/hr 03/24/21 10:00 03/26/21 10:25 IVPB 03/27/21 10:5
[2021-03-26] MEDS: FUROSEMIDE INJ 40 MG/4 ML VIAL 20 MG IV PUSH (15:55)
[2021-03-26] MEDS: FAMOTIDINE 20 MG TABLET PO ×2 (16:38→21:38)
[2021-03-27] VITALS (12 sets, daily range): BP systolic 111–133; BP diastolic 59–80; PULSE 63–98; RESP 16–22; TEMP 35.9–37.9; O2SAT 90–97
[2021-03-27] MEDS: ACETAMINOPHEN 325 MG TABLET 650 MG PO (00:08)
[2021-03-27] MEDS: ALBUTEROL SULFATE (*SP) INHALER 2 PUFF INHALATION ×2 (02:36→12:00)
[2021-03-27 08:01] LABS: Alanine Aminotransferase 182 U/L (4-50); Albumin Level 3.6 g/dL (3.5-5.1); Alkaline Phosphatase 41 U/L (38-126); Anion Gap 10 mmol/L (8-16); Aspartate Amino Transferase 74 U/L (17-59); Bilirubin,Total 0.7 mg/dL (0.2-1.3); Blood Urea Nitrogen 24 mg/dL (9-20); Calcium 8.3 mg/dL (8.4-10.2); Carbon Dioxide 25 mmol/L (22-30); Chloride 100 mmol/L (98-107); Estimated CRCL calculation 115 ml/min; Estimated Glomerular Filt Rate > 60; Glucose 113 mg/dL (65-110); Potassium 4.1 mmol/L (3.4-5.0); Sodium 135 mmol/L (137-145)
[2021-03-27 08:05] LABS: Basophils Absolute Auto 0.1 K/mm3 (0.0-0.1); Basophils Percent Auto 0.7 % (0.2-1.2); Eosinophils Percent Auto 0.1 % (0-4.4); Hematocrit 41.3 % (42.0-52.0); Hemoglobin 13.7 g/dL (14.0-18.0); Immature Granulocyte Absolute 0.32 K/mm3 (0.00-0.031); Immature Granulocyte Percent A 3.2 % (0-0.5); Lymphocytes Absolute Auto 1.51 K/mm3 (0.9-3.2); Mean Corpuscular HGB Conc 33.2 g/dl (32-36); Mean Corpuscular Hemoglobin 29.7 pg (26-34); Mean Corpuscular Volume 89.4 fl (80-100); Monocytes Absolute Auto 0.7 K/mm3 (0.1-0.6); Monocytes Percent Auto 7.1 % (2.6-8.5); Neutrophils Absolute Auto 7.4 K/mm3 (1.3-6.7); Neutrophils Percent Auto 73.9 % (45.5-73.1); Red Blood Count 4.62 M/mm3 (4.6-6.20); Red Cell Distribution Width 12.9 % (11.5-14.5)
[2021-03-27 08:47] LABS: Prothrombin Time 12.9 Seconds (11.1-14.7)
[2021-03-27] MEDS: FAMOTIDINE 20 MG TABLET PO ×2 (09:42→20:47)
[2021-03-27] MEDS: FUROSEMIDE INJ 40 MG/4 ML VIAL 20 MG IV PUSH (09:42)
[2021-03-27] MEDS: ENOXAPARIN 40 MG/0.4 ML SYRINGE SUB-Q (09:42)
[2021-03-27] MEDS: guaiFENesin 12 HR 600 MG TABCR 1200 MG PO ×2 (09:42→20:47)
[2021-03-27] MEDS: BARICITINIB 2 MG TABLET 4 MG PO (09:43)
[2021-03-27] MEDS: REMDESIVIR 100 MG/NS 250 ML 100 MG/250 ML BAG 250 MG IVPB (10:31)
--- NOTE | 2021-03-27 15:07 | PM.IMPN ---
Progress Note: A&P Assessment and Plan (1) Acute respiratory failure with hypoxia: Code(s): J96.01 - Acute respiratory failure with hypoxia Status: Acute (2) Pneumonia due to 2019 novel coronavirus: Code(s): U07.1 - COVID-19; J12.82 - Pneumonia due to coronavirus disease 2019 Status: Acute Additional Plan # COVID-19 pneumonia # acute hypoxic respiratory failure -unvaccinated, diagnosed 03/23/2021 -continue remdesivir 03/23- 5 days, dexamethasone 03/23- 10 days, baricitinib 03/24-for 14 days -continue supplemental oxygen to keep oxygen saturation greater than 90%, currently on 12 L high-flow oxygen -isolation precautions for COVID-19 -trending LFTs while on remdesivir, CBC and CMP while on baricitinib -continue lasix 20mg IV daily, he appears to be tolerating it -discussed with nurse to wean oxygen Diet: Regular DVT prophylaxis: Lovenox Code status: Full code Disposition: Anticipate greater than 3 days oxygen weaning Subjective Date/time seen: 03/27/21 15:07 Patient seen examined. He has no new complaints. He is frustrated for being in the hospital for so long. I reassured him and explained to him what to expect. He denies fever, chills, nausea, vomiting, diarrhea. He endorses cough and dyspnea. Review of Systems Review of Systems: All systems reviewed & are unremarkable except as noted in HPI and below Exam Narrative: - GENERAL: Pleasant male in no acute distress. Well-nourished. - EYES: EOMI. Anicteric. - HENT: Moist mucous membranes. - LUNGS: Coarse lung sounds bilaterally. Coarse cough. Nonlabored respirations on 12 L oxygen. - CARDIOVASCULAR: Regular rate and rhythm. No murmur. No JVD. - ABDOMEN: Soft, non-tender and non-distended. No palpable masses. - EXTREMITIES: No edema. Peripheral pulses 2+. Non-tender. - NEUROLOGIC: No focal neurological deficits. CN II-XII grossly intact. - PSYCHIATRIC: Awake, Alert and oriented x 3. Appropriate mood and affect. - SKIN: No rashes or lesions. Warm. - LYMPH: No cervical lymphadenopathy. Objective Data Vital Signs Vital Signs: Vital Signs - 24 hr 03/26/21 16:00 03/26/21 20:00 03/26/21 21:20 Temperature 36.6 C 36.9 C Pulse Rate 84 75 98 Respiratory Rate 16 16 22 H Blood Pressure 122/86 125/68 Pulse Oximetry 90 91 03/27/21 00:00 03/27/21 00:08 03/27/21 01:08 Temperature 37.8 C H 37.8 C H 37.7 C H Pulse Rate 83 Respiratory Rate 16 Blood Pressure 115/75 Pulse Oximetry 91 03/27/21 02:35 03/27/21 04:00 03/27/21 08:00 Temperature 37.9 C H 36.2 C L Pulse Rate 98 71 72 Respiratory Rate 22 H 16 16 Blood Pressure 113/76 128/78 Pulse Oximetry 92 92 03/27/21 08:35 03/27/21 12:00 03/27/21 12:02 Temperature 36.6 C Pulse Rate 92 Respiratory Rate 20 Blood Pressure 119/59 L Pulse Oximetry 92 97 90 Intake/Output Intake/Output: Intake & Output 03/24/21 03/25/21 03/26/21 03/27/21 23:59 23:59 23:59 23:59 Intake Total 2400 1340 2960 990 Output Total 900 1 Balance 1500 1340 2959 990 Meds/Results Medications: Active Medications Generic Name Dose Route Start Last Admin Trade Name Freq PRN Reason Stop Dose Admin Acetaminophen 650 mg 03/23/21 13:45 03/27/21 00:08 Acetaminophen 325 Mg Tablet PO 650 mg Q4H PRN Administration Mild Pain (1-3) or Fever Albuterol 2 puff 03/24/21 20:00 03/27/21 12:00 Albuterol Sulfate (*Sp) Inhaler INHALATION 2 puff Q6HRT SELMA Administration Baricitinib 4 mg 03/24/21 15:50 03/27/21 09:43 Baricitinib 2 Mg Tablet PO 4 mg DAILY SELMA Administration Dexamethasone Sodium Phosphate 6 mg 03/24/21 09:00 03/27/21 09:42 Dexamethasone Sod Phos Inj 10 Mg/Ml 1 Ml Vial IV PUSH 04/01/21 09:01 6 mg DAILY SELMA Administration Enoxaparin Sodium 40 mg 03/24/21 09:00 03/27/21 09:42 Enoxaparin 40 Mg/0.4 Ml Syringe SUB-Q 40 mg DAILY SELMA Administration Famotidine 20 mg 03/26/21 16:00 03/27/21 09:42 Famotidine 20 Mg Tablet PO 20
[2021-03-28] VITALS (11 sets, daily range): BP systolic 108–120; BP diastolic 59–78; PULSE 62–86; RESP 14–18; TEMP 36.4–37.3; O2SAT 93–98
--- NOTE | 2021-03-28 06:57 | PC.NURSE ---
2100: Rounded on patient and found two white pills at bedside in a medicine cup. Patient stated This is my famotidine and the doctor told me I could take them when I felt I needed them. I took the medicine to the nurses station. Informed the charge nurse. Medication was verified to be famotidine. Medication is labeled and in the medication room.
[2021-03-28 09:22] LABS: Basophils Absolute Auto 0.1 K/mm3 (0.0-0.1); Basophils Percent Auto 0.8 % (0.2-1.2); Eosinophils Percent Auto 0.2 % (0-4.4); Hemoglobin 13.9 g/dL (14.0-18.0); Immature Granulocyte Absolute 0.72 K/mm3 (0.00-0.031); Immature Granulocyte Percent A 5.4 % (0-0.5); Immature Platelet Fraction Pct 15.3 % (0.9-11.2); Lymphocytes Absolute Auto 1.71 K/mm3 (0.9-3.2); Lymphocytes Percent Auto 12.8 % (18.3-44.2); Mean Corpuscular HGB Conc 33.1 g/dl (32-36); Mean Corpuscular Volume 87.5 fl (80-100); Mean Platelet Volume 12.2 fl (7.4-10.4); Monocytes Absolute Auto 0.9 K/mm3 (0.1-0.6); Monocytes Percent Auto 6.5 % (2.6-8.5); Neutrophils Absolute Auto 9.9 K/mm3 (1.3-6.7); Neutrophils Percent Auto 74.3 % (45.5-73.1); Red Cell Distribution Width 12.6 % (11.5-14.5); White Blood Count 13.3 K/mm3 (4.5-10.0)
[2021-03-28] MEDS: ENOXAPARIN 40 MG/0.4 ML SYRINGE SUB-Q (09:28)
[2021-03-28] MEDS: FAMOTIDINE 20 MG TABLET PO ×2 (09:29→20:23)
[2021-03-28] MEDS: guaiFENesin 12 HR 600 MG TABCR 1200 MG PO ×2 (09:29→20:23)
[2021-03-28] MEDS: BARICITINIB 2 MG TABLET 4 MG PO (09:29)
[2021-03-28] MEDS: FUROSEMIDE INJ 40 MG/4 ML VIAL 20 MG IV PUSH (09:29)
[2021-03-28 09:31] LABS: Alanine Aminotransferase 151 U/L (4-50); Albumin Level 3.6 g/dL (3.5-5.1); Alkaline Phosphatase 40 U/L (38-126); Anion Gap 7 mmol/L (8-16); Aspartate Amino Transferase 45 U/L (17-59); Bilirubin,Total 0.6 mg/dL (0.2-1.3); Blood Urea Nitrogen 23 mg/dL (9-20); Calcium 8.5 mg/dL (8.4-10.2); Carbon Dioxide 27 mmol/L (22-30); Chloride 100 mmol/L (98-107); Estimated CRCL calculation 102 ml/min; Estimated Glomerular Filt Rate > 60; Glucose 107 mg/dL (65-110); Sodium 134 mmol/L (137-145)
[2021-03-28] MEDS: ALBUTEROL SULFATE (*SP) INHALER 2 PUFF INHALATION ×3 (10:02→20:55)
[2021-03-28 10:06] LABS: Platelet Clumps Present; Platelet Estimate Adequate (Adequate)
--- NOTE | 2021-03-28 14:59 | PM.IMPN ---
Progress Note: A&P Assessment and Plan (1) Acute respiratory failure with hypoxia: Code(s): J96.01 - Acute respiratory failure with hypoxia Status: Acute (2) Pneumonia due to 2019 novel coronavirus: Code(s): U07.1 - COVID-19; J12.82 - Pneumonia due to coronavirus disease 2019 Status: Acute Additional Plan # COVID-19 pneumonia # acute hypoxic respiratory failure -unvaccinated, diagnosed 03/23/2021 -continue remdesivir 03/23- 5 days, dexamethasone 03/23- 10 days, baricitinib 03/24-for 14 days -continue supplemental oxygen to keep oxygen saturation greater than 90%, been able to wean to 7 L high-flow oxygen today -isolation precautions for COVID-19 -trending LFTs while on remdesivir, CBC and CMP while on baricitinib -continue lasix 20mg IV daily, he appears to be tolerating it -discussed with nurse to wean oxygen Diet: Regular DVT prophylaxis: Lovenox Code status: Full code Disposition: Anticipate greater than 3 days oxygen weaning, likely home discharge no needs for therapy Subjective Date/time seen: 03/28/21 14:59 Patient seen examined. He is doing well today stating that he feels much better, still on 12 L oxygen over last 3 days, discussed with nurse to wean oxygen as tolerated. By the afternoon he wean down to 7 L still satting 95%, continue weaning as tolerated. Otherwise per continuing the COVID-19 treatment plan which he is tolerating very well. Patient denies fever, chills, nausea, vomiting, diarrhea, chest pain, shortness with. He states his cough is much better now. Review of Systems Review of Systems: All systems reviewed & are unremarkable except as noted in HPI and below Exam Narrative: - GENERAL: Pleasant male in no acute distress. Well-nourished. - EYES: EOMI. Anicteric. - HENT: Moist mucous membranes. - LUNGS: Clear to auscultation bilaterally no wheezing, minimal scattered rhonchi. Nonlabored respirations on 12 L oxygen. - CARDIOVASCULAR: Regular rate and rhythm. No murmur. No JVD. - ABDOMEN: Soft, non-tender and non-distended. No palpable masses. - EXTREMITIES: No edema. Peripheral pulses 2+. Non-tender. - NEUROLOGIC: No focal neurological deficits. CN II-XII grossly intact. - PSYCHIATRIC: Awake, Alert and oriented x 3. Appropriate mood and affect. - SKIN: No rashes or lesions. Warm. - LYMPH: No cervical lymphadenopathy. Objective Data Vital Signs Vital Signs: Vital Signs - 24 hr 03/27/21 16:00 03/27/21 20:00 03/27/21 23:58 Temperature 36.4 C 35.9 C L 36.4 C Pulse Rate 91 63 70 Respiratory Rate 20 16 16 Blood Pressure 111/67 133/77 124/80 Pulse Oximetry 91 92 92 03/28/21 04:00 03/28/21 08:00 03/28/21 09:35 Temperature 36.7 C 37.3 C Pulse Rate 62 74 Respiratory Rate 16 18 Blood Pressure 115/73 112/76 Pulse Oximetry 97 93 96 03/28/21 10:30 03/28/21 12:00 03/28/21 12:41 Temperature 36.5 C Pulse Rate 76 Respiratory Rate 16 Blood Pressure 108/59 L Pulse Oximetry 94 97 95 Intake/Output Intake/Output: Intake & Output 03/25/21 03/26/21 03/27/21 03/28/21 23:59 23:59 23:59 23:59 Intake Total 1340 2960 2260 1710 Output Total 1 600 Balance 1340 2959 1660 1710 Meds/Results Medications: Active Medications Generic Name Dose Route Start Last Admin Trade Name Freq PRN Reason Stop Dose Admin Acetaminophen 650 mg 03/23/21 13:45 03/27/21 00:08 Acetaminophen 325 Mg Tablet PO 650 mg Q4H PRN Administration Mild Pain (1-3) or Fever Albuterol 2 puff 03/24/21 20:00 03/28/21 13:22 Albuterol Sulfate (*Sp) Inhaler INHALATION 2 puff Q6HRT SELMA Administration Baricitinib 4 mg 03/24/21 15:50 03/28/21 09:29 Baricitinib 2 Mg Tablet PO 4 mg DAILY SELMA Administration Dexamethasone Sodium Phosphate 6 mg 03/24/21 09:00 03/28/21 09:29 Dexamethasone Sod Phos Inj 10 Mg/Ml 1 Ml Vial IV PUSH 04/01/21 09:01 6 mg DAILY SELMA Administration Enoxaparin Sodium 40 mg 03/24/21 09:00 03/28/21 09:28 Enoxaparin 40 Mg/0.4
[2021-03-29] VITALS (10 sets, daily range): BP systolic 103–117; BP diastolic 60–88; PULSE 70–111; RESP 16–18; TEMP 36.1–36.4; O2SAT 90–97
--- NOTE | 2021-03-29 01:08 | PC.NURSE ---
Patient resting comfortably on right side. O2 at 4L high flow. Will continue to monitor
[2021-03-29] MEDS: ALBUTEROL SULFATE (*SP) INHALER 2 PUFF INHALATION ×3 (01:58→14:13)
--- NOTE | 2021-03-29 02:58 | PC.NURSE ---
Patient continues to rest well. No complaints or needs voiced at this time. Will continue to monitor
[2021-03-29 07:19] LABS: Alanine Aminotransferase 148 U/L (4-50); Albumin Level 3.4 g/dL (3.5-5.1); Alkaline Phosphatase 42 U/L (38-126); Anion Gap 9 mmol/L (8-16); Aspartate Amino Transferase 49 U/L (17-59); Bilirubin,Total 0.7 mg/dL (0.2-1.3); Blood Urea Nitrogen 21 mg/dL (9-20); Calcium 8.3 mg/dL (8.4-10.2); Carbon Dioxide 28 mmol/L (22-30); Chloride 99 mmol/L (98-107); Estimated CRCL calculation 102 ml/min; Estimated Glomerular Filt Rate > 60; Glucose 108 mg/dL (65-110); Potassium 3.7 mmol/L (3.4-5.0); Sodium 136 mmol/L (137-145)
[2021-03-29 07:32] LABS: Hematocrit 41.9 % (42.0-52.0); Hemoglobin 13.7 g/dL (14.0-18.0); Immature Platelet Fraction Pct 16.5 % (0.9-11.2); Mean Corpuscular HGB Conc 32.7 g/dl (32-36); Mean Corpuscular Hemoglobin 28.9 pg (26-34); Mean Corpuscular Volume 88.4 fl (80-100); Red Blood Count 4.74 M/mm3 (4.6-6.20); Red Cell Distribution Width 12.7 % (11.5-14.5); White Blood Count 14.1 K/mm3 (4.5-10.0)
[2021-03-29 08:05] LABS: Atypical Lymphocytes Present; Band Neutrophils Percent 4 % (0-6); Lymphocytes Absolute Manual 2.82 K/mm3 (1.1-4.5); Monocytes Absolute Manual 0.42 K/mm3 (0.1-0.90); Monocytes Percent Manual 3 % (3-9); Neutrophils Absolute Manual 10.85 K/mm3 (1.3-6.7); Neutrophils Percent Manual 73 % (46-73); Platelet Estimate Adequate (Adequate); Total Cells Counted 100
[2021-03-29] MEDS: ENOXAPARIN 40 MG/0.4 ML SYRINGE SUB-Q (10:27)
[2021-03-29] MEDS: BARICITINIB 2 MG TABLET 4 MG PO (10:28)
[2021-03-29] MEDS: FAMOTIDINE 20 MG TABLET PO (10:28)
[2021-03-29] MEDS: guaiFENesin 12 HR 600 MG TABCR 1200 MG PO (10:29)
[2021-03-29] MEDS: FUROSEMIDE INJ 40 MG/4 ML VIAL 20 MG IV PUSH (10:29)
--- NOTE | 2021-03-29 14:43 | PM.DS ---
DS: Admitting Diagnosis Discharge Date 03/29/2021 Admitting Diagnosis COVID-19 pneumonia, acute hypoxic respiratory failure DS: Discharge Diagnosis Discharge Diagnosis (1) Acute respiratory failure with hypoxia: Code(s): J96.01 - Acute respiratory failure with hypoxia Status: Acute (2) Pneumonia due to 2019 novel coronavirus: Code(s): U07.1 - COVID-19; J12.82 - Pneumonia due to coronavirus disease 2019 Status: Acute DS: Summary Hospital Course Reason for hospitalization: Acute hypoxic respiratory failure from COVID-19 Hospital Course: Patient is a 40-year-old male no past medical history who presents to ED with complaints of dyspnea. He is not vaccinated for COVID-19 and was tested positive with home test on 03/20/2021. In the hospital his oxygen requirements went up to 15 L high-flow oxygen. He was treated with Decadron remdesivir and baricitinib. After 5 days of treatment his oxygen requirements have been weaned down to room air. Patient to be discharged home without any medications or oxygen. He will follow-up with PCP in a week. He has been advised to quarantine for 10 days since diagnosis date. He works from home and may return tomorrow. He would like to get vaccinated, I advised him to wait 3 months. Status at Discharge Cognitive/behavioral status at discharge: At baseline Functional status at discharge: independent ambulation Overall status at discharge: patient is back to baseline Time Spent with Patient Time attestation: Total time spent providing and/or coordinating discharge services:35 Time spent: Greater than 30 minutes Exam Narrative: - GENERAL: Pleasant male in no acute distress. Well-nourished. - EYES: EOMI. Anicteric. - HENT: Moist mucous membranes. - LUNGS: Clear to auscultation bilaterally, no wheezing, rhonchi, or rales. - CARDIOVASCULAR: Regular rate and rhythm. No murmur. No JVD. - ABDOMEN: Soft, non-tender and non-distended. No palpable masses. - EXTREMITIES: No edema. Peripheral pulses 2+. Non-tender. - NEUROLOGIC: No focal neurological deficits. CN II-XII grossly intact. - PSYCHIATRIC: Awake, Alert and oriented x 3. Appropriate mood and affect. - SKIN: No rashes or lesions. Warm. - LYMPH: No cervical lymphadenopathy. DS: Data Data Completed and Pending Labs on day of discharge: Labs from last 24 hours 03/29/21 03/29/21 06:19 06:19 WBC 14.1 H RBC 4.74 Hgb 13.7 L Hct 41.9 L MCV 88.4 MCH 28.9 MCHC 32.7 RDW 12.7 Plt Count TNP MPV TNP Immature Gran % (Auto) Not Reportable Neut % (Auto) Not Reportable Lymph % (Auto) Not Reportable [place] % (Auto) Not Reportable Eos % (Auto) Not Reportable Baso % (Auto) Not Reportable Lymph # (Auto) Not Reportable [place] # (Auto) Not Reportable Eos # (Auto) Not Reportable Baso # (Auto) Not Reportable Abs Immat Gran (auto) Not Reportable Absolute Neuts (auto) Not Reportable Absolute Nucleated RBC Not Reportable Total Counted 100 Neutrophils % (Manual) 73 Band Neutrophils % 4 Lymphocytes % (Manual) 20.0 Monocytes % (Manual) 3 Nucleated RBC % Not Reportable Abs Neuts (Manual) 10.85 H Abs Lymphs (Manual) 2.82 Abs Monocytes (Manual) 0.42 Atypical Lymphocytes Present Platelet Estimate Adequate % Immature Plt Fraction 16.5 H Sodium 136 L Potassium 3.7 Chloride 99 Carbon Dioxide 28 Anion Gap 9 BUN 21 H Creatinine 0.80 Estim Creat Clear Calc 102 Estimated GFR > 60 Glucose 108 Calcium 8.3 L Total Bilirubin 0.7 AST 49 ALT 148 H Alkaline Phosphatase 42 Total Protein 6.0 L Albumin 3.4 L Discharge Plan Discharge Attending physician on discharge: Tatiana Mg Discharging Clinician: Tatiana Mg Anticipated Discharge Date/Time: 03/29/21 15:00 Patient Disposition: Home, Self-Care Activity: may shower Diet: regular Discharge Instructions: We have already completed the remdesivir course and
== END 2021-03-29 15:35 | disposition home or self-care (01) | DRG 177 ==
LOC: ANHED 13:44 → ANH3MEDSUR 16:34
PROVIDERS: Emergency Medicine; Physician Assistant; Admitting Provider Internal Medicine; Emergency Provider Family Medicine; PCP Internal Medicine; Visit Provider Student in an Organized Health Care Education/Training Program
DX: U07.1 COVID-19 (principal); J12.82 Pneumonia due to coronavirus disease 2019; J96.01 Acute respiratory failure with hypoxia
CPT/HCPCS: 36415; 71045; 71275; 80053; 82728; 83615; 83735; 84443; 85025; 85055; 85380; 85610; 86140; 87426; 93005; 94618; 94640; 96365; 96372; 96375; 99285; A9270; C9803; G0378; J1100; J1650; J1940; Q9967